=== PATIENT | male | born 1955 | race Caucasian/White ===

== ENCOUNTER 2017-02-02 09:16 | Outpatient (CLI) ==
--- NOTE | 2017-02-03 09:53 | MRI ---
EXAM: Lumbar spine MRI without contrast. HISTORY: Pain. COMPARISON: None. TECHNIQUE: Multiplanar, multisequence MR images were acquired of the lumbar spine without contrast. FINDINGS: Five lumbar-type vertebra are present. There is minor mid lumbar dextroscoliosis and mil d loss of the usual smooth lumbar lordosis. There is 1.5 mm retrolisthesis of L4 on L5 and 2 mm ret rolisthesis of L5 on S1. The superior endplate of S1 is smaller than the inferior endplate of L5. T he lumbar vertebra are generally normal in height and intrinsic bone marrow signal. Benign intraoss eous hemangioma is present at T12. Ventral and lateral osteophytes are present in the lumbar spine and there is mild irregular concavity of the endplates from T10-11 to L5-S1.. Small chronic Schmorl 's nodes are present at T12, L1, L5 and S1. There is disc space narrowing and disc desiccation with vacuum phenomenon at L1-2. At L3-4, there is osteophytosis with moderate disc space narrowing and mild irregularity of the endplates which is greatest left laterally where there is bright STIR signa l along the left posterolateral endplates, central left intervertebral disc and in the left L3-4 jesus ral foramen. At L4-5, there is moderate disc space narrowing with mild degenerative endplate rea es which are greatest right laterally with bright STIR signal along the right lateral endplates and intervertebral disc without cortical destruction along the endplates. At L5-S1, there is moderate to marked disc space narrowing with mild degenerative endplate changes and reactive marrow changes tom ng the lateral endplates bilaterally. Faint bright STIR signal is present i along the mid right post erolateral endplates and disc without cortical destruction. Conus medullaris ends at L1-2 and has n ormal signal intensity. 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 The partially visualized liver, spleen and kidneys are unremarkable. There is dilatation of the dis vj common bile duct which tapers to the duodenum. There are no paravertebral masses. T12-L1: There is a mild diffuse disc osteophyte complex with a small right paracentral disc protrus ion that mildly indents the right ventrolateral thoracic cord that effaces the right lateral recess where may adversely contact the right L1 nerve roots. Minor bilateral facet arthropathy is present. There is no central canal stenosis. L1-2: There is a mild disc bulge that is asymmetric to the right and mild bilateral hypertrophic fa cet arthropathy and ligamentum flavum hypertrophy. This causes mild right foraminal stenosis. L2-3: There is a mild bilobed disc bulge with a left lateral annular fissure and a small right post erolateral/lateral disc protrusion and annular fissure that narrows the right lateral recess and inf erior right neural foramen. Minor bilateral facet arthropathy and mild bilateral ligamentum flavum hypertrophy is present. In this patient with a developmentally narrow canal and prominent dorsal ep idural fat, these findings cause mild bilateral neural foraminal stenosis and mild spinal stenosis. AP diameter of the thecal sac is 9 mm. L3-4: There is a diffuse disc bulge with marginal osteophytes that is asymmetric to the left which effaces the ventral thecal sac and narrows the inferior neural foramina bilaterally. There is a mod erate broad-based central disc extrusion that extends from the right paracentral margin of the disc to the left posterolateral margin of the disc. This has migrated 7 mm below the disc level. Modera te left and mild to moderate right hypertrophic facet arthropathy is present with mild bright STIR s ignal edema in the left posterolateral and lateral L3 and L4 vertebra endplates, intervertebral disc and L4 pedicle. This extends into the left neural foramen and into the left lateral paravertebral soft tissues and medial left psoas muscle at L3 and L4. No localized fluid collections are present. These findings may represent degenerative changes or early diskitis and osteomyelitis. No cortic al destruction is identified. L4-5: There is a diffuse disc bulge that is asymmetric to the right and small central disc extrusio n with 3 mm inferior migration. Mild right hypertrophic facet arthropathy and minor left facet arth ropathy is present. There is mild right neural foraminal stenosis. L5-S1: There is a diffuse disc osteophyte complex with a small central disc protrusion that minimal ly effaces the ventral thecal sac. Mild bilateral hypertrophic facet arthropathy and ligamentum fla vum hypertrophy is present. This produces bilateral lateral recess stenosis where there may be encr oachment on both S1 nerves and there is moderate bilateral foraminal stenosis with encroachment on b oth L5 nerves. IMPRESSION: 1. Extensive lumbar degenerative spondylosis which in this patient with a developmentally narrow ca nal causes mild L2-3 and mild to moderate L3-4 spinal stenosis. 2. Unexpected result. Moderate discogenic disease L3-4 with bright STIR signal along the left late ral endplates and central and left intervertebral disc. This extends into the medial left psoas mus keaton at L3 and L4. Clinical considerations include early diskitis and endplate osteomyelitis with ad jacent psoas inflammation or accelerated degenerative endplate changes with bright STIR signal edema due to increased stress or motion at this level. Correlation with laboratory findings and further evaluation is advised. 3. Mild discogenic disease L4-5 with mild degenerative endplate changes right laterally and bright STIR signal in the right intervertebral disc and along the lateral endplates. This may represent ed sebastian due to degenerative endplate changes or early inflammation. Correlation with laboratory values may be helpful. 4. Small right paracentral disc protrusion T12-L1 that may encroach on the right L1 nerve roots. 5. Small disc herniations L2-3, L4-5 and L5-S1 and moderate disc herniation L3-4.
== END 2017-02-02 09:17 | disposition home or self-care (01) ==
LOC: RAD 09:16 → EDBD 09:16 → RAD 09:17
PROVIDERS: ATTEND Nurse Practitioner
DX: M54.5 Low back pain (principal)

== ENCOUNTER 2017-03-21 10:38 | Emergency (ER) ==
[2017-03-21 10:44] VITALS: BP 158/90; TEMP 98.4; BMI 37.5
[2017-03-21 11:17] LABS: BILIRUBIN,URINE Negative (NEGATIVE); KETONES,URINE Negative (NEGATIVE); LEUKOCYTE ESTERASE ,URINE Negative (NEGATIVE); NITRITE,URINE Negative (NEGATIVE); PH,URINE 5.5 (5-9); PROTEIN,URINE Negative (NEGATIVE); URINE, BLOOD Negative (NEGATIVE)
[2017-03-21 11:20] LABS: ADD URINE MICROSCOPIC NO
[2017-03-21 11:33] LABS: BASOPHILS # (AUTO) 0.1 K/uL (0-0.2); BASOPHILS % (AUTO) 0.9 % (0.0-3.0); EOSINOPHILS % (AUTO) 0.4 % (0.0-7.0); HEMATOCRIT 44.6 % (42.0-52.0); HEMOGLOBIN 15.9 g/dl (14.0-18.0); IMMATURE GRANULOCYTE % (AUTO) 0.4 % (0.0-5.0); LYMPHOCYTES # (AUTO) 1.1 K/uL (0.60-3.4); LYMPHOCYTES % (AUTO) 20.6 (10.0-50.0); MEAN CORPUSCULAR HGB CONC 35.7 (31.8-35.4); MEAN CORPUSCULAR VOLUME 86.9 fl (80.0-94.0); MONOCYTES # (AUTO) 0.7 K/uL (0.4-2.0); MONOCYTES % (AUTO) 12.8 (0-10); NEUTROPHILS # (AUTO) 3.5 K/ul (2.0-6.9); NEUTROPHILS % (AUTO) 64.9; PLATELET COUNT 176 10^3/uL (140-440); RED BLOOD COUNT 5.13 10^6/ul (4.70-6.10); WHITE BLOOD COUNT 5.45 K/ul (4.2-10.2)
[2017-03-21 11:53] LABS: ALBUMIN 4.3 g/dL (3.4-5.0); ALBUMIN/GLOBULIN RATIO 1.19; ANION GAP 14.6; BILIRUBIN,TOTAL 1.15 mg/dL (0.00-1.20); BUN/CREATININE RATIO 12.5; CALCIUM 9.8 mg/dL (8.2-10.2); CREATININE 1.04 mg/dL (0.60-1.10); POTASSIUM 4.6 mmol/L (3.5-5.1); TOTAL PROTEIN 7.9 g/dL (5.8-8.1)
--- NOTE | 2017-03-21 11:55 | DI ---
EXAM: Two views of the chest. History: Cough. Findings: Heart size is normal. No focal consolidation. No appreciable pleural fluid and no pneum othorax. No acute osseous abnormalities. Impression: No acute cardiopulmonary process.
--- NOTE | 2017-03-21 12:01 | CT ---
EXAM: CT of the lumbar spine without contrast History: Osteomyelitis of the lumbar spine. Comparison: MRI lumbar spine 02/02/2017 Technique: Multiplanar CT images through the lumbar spine were obtained without the administration of IV contrast Findings: No acute fracture or subluxation of the lumbar spine. No CT evidence for osteomyelitis/diskitis. N o change in the multilevel degenerative disc space narrowing which is most significant and moderate to severe at L5, S1. Multilevel central canal stenosis is not significantly changed compared to the prior MRI. The multilevel bilateral bony neural foraminal narrowing which is severe bilaterally at L5-S1 is also not significantly changed compared to the prior MRI. Impression: 1. No CT evidence for osteomyelitis or diskitis. 2. No acute fracture or subluxation. 3. Stable degeneration of the lumbar spine.
--- NOTE | 2017-03-21 12:37 | ED.PDOC ---
General ED Provider: Dr. ZARINA ANDRADE Chief Complaint: Fever Stated Complaint: fever Time Seen by Physician: 10:49 (stated he had fever at home none in ED ) Mode of Arrival: Walk-In Information Source: Patient Exam Limitations: No limitations Primary Care Provider: NATHAN ARMSTRONG Referred to ED by: Other (WITH NURSE AT BEDSIDE DID A POINT STRESS EXAM ON HIS ENTIRE SPINE NO PAIN NOTED LEONARDO AT BEDSIDE MRI REVIWED ) Nursing and Triage Documentation Reviewed and Agree: Yes (SEEN WITH SATFF AT ALL TIMES (LEONARDO. RN) NO BACK PAIN ON ARRIVAL) Miscellaneous Complaint Exam - Febrile Illness/Adult Complaint/Exam Onset/Duration: 1 DAY AGO T MAX 101 Symptoms Are: Resolved Current Severity: None Aggravating: Reports: None Alleviating: Reports: None Associated Signs and Symptoms: Reports: Vomiting Pseudomonas Risk Factors: Reports: None Serious Bacterial Infection Risk Factors: Reports: None Related Surgical History: None Review of Systems - Review Of Systems Constitutional: Reports: Fever Eyes: Reports: No symptoms Ears, Nose, Mouth, Throat: Reports: No symptoms Respiratory: Reports: No symptoms Cardiac: Reports: No symptoms GI: Reports: No symptoms : Reports: No symptoms Musculoskeletal: Reports: No symptoms Skin: Reports: No symptoms Neurological: Reports: No symptoms Endocrine: Reports: No symptoms Hematologic/Lymphatic: Reports: No symptoms All Other Systems: Reviewed and Negative Past Medical History - Past Medical History Previously Healthy: No Endocrine: Reports: DM 2, Dyslipidemia Cardiovascular: Reports: Hypertension Respiratory: Reports: None Hematological: Reports: None Gastrointestinal: Reports: None Genitourinary: Reports: None Neuro/Psych: Reports: None Musculoskeletal: Reports: None Cancer: Reports: None - Surgical History General Surgical History: Reports: None - Family History Family History: Reports: None - Social History Smoking Status: Former smoker Hx Substance Use: No Alcohol Screening: Occasionally Physical Exam - Physical Exam Appearance: Well-appearing, No pain distress, Well-nourished Eyes: ZACHARY, EOMI, Conjunctiva clear ENT: Ears normal, Nose normal, Oropharynx normal Respiratory: Airway patent, Breath sounds clear, Breath sounds equal, Respirations nonlabored Cardiovascular: RRR, Pulses normal, No rub, No murmur GI/: Soft, Nontender, No masses, Bowel sounds normal, No Organomegaly Musculoskeletal: Normal strength (ENTIRE BACK EXAM WITH NURSE ATBEDSIDE NEGATIVE FOR PAIN), ROM intact, No edema, No calf tenderness Skin: Warm, Dry, Normal color Neurological: Sensation intact, Motor intact, Reflexes intact, Cranial nerves intact, Alert, Oriented Psychiatric: Affect appropriate, Mood appropriate Interpretation - Radiology Interpretation Radiology Interpretation By: Radiologist Radiology Results: Negative Exam Interpreted: CXR Critical Care Note - Critical Care Note Total Time (mins): 0 Course - Course Hematology/Chemistry: 03/21/17 11:23 03/21/17 11:23 Orders, Labs, Meds: Lab Review 03/21/17 03/21/17 11:00 11:23 WBC 5.45 RBC 5.13 Hgb 15.9 Hct 44.6 MCV 86.9 MCH 31.0 MCHC 35.7 H RDW Coeff of [place] 12.2 Plt Count 176 Immature Gran % (Auto) 0.4 Neut % (Auto) 64.9 Lymph % (Auto) 20.6 [place] % (Auto) 12.8 H Eos % (Auto) 0.4 Baso % (Auto) 0.9 Immature Gran # (Auto) 0.0 Neut # 3.5 Lymph # 1.1 [place]ancock # 0.7 Eos # 0.0 Baso # 0.1 Sodium 134 L Potassium 4.6 Chloride 97 L Carbon Dioxide 27 Anion Gap 14.6 BUN 13 Creatinine 1.04 Estimated GFR (MDRD) 72.00 BUN/Creatinine Ratio 12.50 Glucose 242 H Lactic Acid 24.8 H Calcium 9.8 Total Bilirubin 1.15 AST 26 ALT 42 Alkaline Phosphatase 64 Total Protein 7.9 Albumin 4.3 Globulin 3.6 Albumin/Globulin Ratio 1.19 Procalcitonin 0.11 Urine Color Yellow Urine Clarity Clear Urine pH 5.5 Ur Specific [place] 1.010 Urine Protein Negative Urine Glucose (UA) 2+ Urine Ketones Negative Urine Blood Negative Urine Nitrite Negative Urine Bilirubin Negative Urine Urobilinogen 1.0 Ur Leukocyte Esterase Negative Orders Category Date Time Status BLOOD CULTURE Stat LAB 03/21/17 11:23 Received CBC W/ AUTO DIFF Stat LAB 03/21/17 11:23 Completed COMPREHENSIVE METABOLIC PANEL Stat LAB 03/21/17 11:23 Completed LACTIC ACID Stat LAB 03/21/17 11:23 Completed PROCALCITONIN Stat LAB 03/21/17 11:23 Completed URINALYSIS C & S IF INDICATED Stat LAB 03/21/17 11:00 Completed CHEST, 2 VIEWS PA & LAT Stat RADS 03/21/17 10:[address] LUMBAR SPINE W/O CONTRAST Stat RADS 03/21/17 10:56 Completed Vital Signs: Temp Pulse Resp BP Pulse Ox 03/21/17 10:40 98.4 F 75 14 158/90 H 94 L Departure - Departure Time of Disposition: 12:38 Disposition: HOME SELF-CARE Discharge Problem: Fever Instructions: Fever in Adults (ED) Condition: Good Pt referred to PMD for follow-up: Yes Additional Instructions: Please call your Family Physician as soon as possible to schedule a follow-up appointment.GET YOUR LAB RESULTS WE DISCUSSED Allergies/Adverse Reactions: Allergies No Known Allergies Allergy (Unverified 03/21/17 10:44) Home Medications: Ambulatory Orders Alprazolam 0.5 mg PO DAILY PRN 03/21/17 Aspirin [Aspirin EC] 81 mg PO DAILYWM 03/21/17 Atorvastatin Calcium 10 mg PO BEDTIME 03/21/17 Glipizide 10 mg PO DAILY 03/21/17 Lisinopril 10 mg PO BID 03/21/17 Metoprolol Tartrate [Lopressor] 50 mg PO BID 03/21/17
[2017-03-23 19:09] LABS: IGG P18 AB Absent (.); IGG P23 AB Absent (.); IGG P28 AB Absent (.); IGG P30 AB Absent (.); IGG P39 AB Absent (.); IGG P41 AB Present (.); IGG P45 AB Absent (.); IGG P58 AB Absent (.); IGG P66 AB Absent (.); IGG P93 AB Absent (.); IGM P39 AB Absent (.); IGM P41 AB Absent (.)
[2017-03-24 08:08] LABS: LYME IGG WB INTERP Negative (.)
[2017-03-24 08:11] LABS: LYME IGM WB INTERP Negative (.)
== END 2017-03-21 13:12 | disposition home or self-care (01) ==
LOC: ED 10:38
DX: R50.9 Fever, unspecified (principal); R11.10 Vomiting, unspecified; E11.9 Type 2 diabetes mellitus without complications; E78.5 Hyperlipidemia, unspecified; I10 Essential (primary) hypertension
CPT/HCPCS: 36415; 80053; 81001; 83605; 84145; 85025; 86617; 87040; 87651; 87798; 87880; 99283; 99291

== ENCOUNTER 2017-03-24 09:06 | Outpatient (CLI) ==
--- NOTE | 2017-03-24 13:42 | MRI ---
EXAM: MRI lumbar spine without and with IV contrast. DATE: 24 March 2017. HISTORY: Lumbar osteoarthritis. Concern for osteomyelitis on January 2017 MRI. TECHNIQUE: Sagittal and axial T1W, T2W, and T1W postcontrast sequences of the lumbar spine along wi th sagittal IR and coronal T2W sequences were obtained using 1.2 Georgette magnet. CONTRAST: Omniscan - 20 ml IV. COMPARISON: MRI L-spine 02/02/2017. CT lumbar spine 21 March 2017. FINDINGS: There are five [id number] lumbar vertebra. No lumbar scoliosis is evident. Minimal subluxations at L1-2, L4-5, L5-S1 are unchanged. No acute lumbar fracture, osseous malignancy, or pars interarticularis defect is demonstrated. Endplate indentations are observed at each level from T11 through L5. Large osteophytes are noted throughout the thoracolumbar spine. Bone marrow signa l is overall normal. T2W/T1W bright, IR mildly bright, 9 mm focus in the T12 vertebral body is like ly a benign hemangioma. Minor L1-2, mild L3-4, mild L4-5, and marked L5-S1 disc space narrowing is detected. Spinous process arthritis is noted at several lumbar levels. No sacral fracture or stres s reaction is evident. Small anterior bridging osteophytes noted at the SI joints. Conus medullari s terminates at L1. Visible spinal cord is normal. No abnormal contrast enhancement is identified w ithin the spinal cord, nerve roots, vertebral bodies, or intervertebral discs. No retroperitoneal lymphadenopathy, paraspinal mass, or aortic aneurysm is detected. Paraspinal musc ulature is symmetric bilaterally. Visible portions of the liver, spleen, adrenal glands and kidneys are limited by breathing motion artifacts, but reveal no definitive malignancy. Segmental analysis: T11-12: Minimal posterior disc bulge and moderate facet arthropathy cause mild central canal stenos is, moderate right foraminal stenosis, and mild/moderate left foraminal stenosis. T12-L1: Small concentric disc bulge, superimposed right paracentral to foraminal disc protrusion (4 mm AP x 2.4 cm transverse), minor right facet arthropathy, and mild left facet arthropathy cause tr iangulation of the canal, mild right foraminal stenosis, and minor left foraminal narrowing. L1-2: Minimal anterior subluxation of L2, small concentric disc bulge, mild facet arthropathy and d orsal epidural fat cause mild central canal stenosis and mild right foraminal stenosis. L2-3: Small concentric disc bulge, mild facet arthropathy, mild ligamentum flavum hypertrophy and a bundant dorsal epidural fat cause mild central canal stenosis and mild bilateral foraminal stenoses. L3-4: Moderate concentric disc bulge (asymmetrically prominent in the left foramen to far lateral r egion vs superimposed disc protrusion), mild facet arthropathy, and mild ligamentum flavum hypertrop hy cause marked central canal stenosis and moderate bilateral foraminal stenoses. Each L3 nerve sherry t contacts the disc bulge in the foramen. There are tiny bilateral facet effusions. L4-5: Minor anterior subluxation of L5, moderate concentric disc bulge, and mild facet arthropathy cause mild central canal stenoses, moderate right foraminal stenosis, and mild left foraminal stenos is. Each L4 nerve root contacts the disc bulge near the lateral aspect of the foramen. L5-S1: Minor anterior subluxation of L5, moderate concentric disc bulge, and mild facet arthropathy cause triangulation of the canal and marked narrowing at the opening to each foramen. Each L5 nerv e root appears to contact disc bulge/facet disease at the foramen. IMPRESSIONS: 1. L-spine marked spondylosis, mild facet arthropathy, minor subluxations, and multilevel DDD. No c onvincing evidence of diskitis or osteomyelitis of the lumbar spine. 2. Multilevel foraminal stenoses. Bilateral L3, L4, and L5 nerve roots contact disc bulges near th e foramen, and may be sources for pain/radiculopathy. 3. Multilevel central canal stenoses (T11-12: Mild. T12-L1: Minor. L1-2: Mild. L2-3: Mild. L3-4 : Marked. L4-5: Mild. L5-S1: Minor). 4. T - L-spine small, chronic Schmorl's nodes. 5. Spinous process arthritis - Baastrup's syndrome. 6. Small, benign hemangioma in the T12 vertebra.
== END 2017-03-24 09:07 | disposition home or self-care (01) ==
LOC: RAD 09:06
PROVIDERS: ATTEND Nurse Practitioner
DX: M47.816 Spondylosis without myelopathy or radiculopathy, lumbar region (principal)

== ENCOUNTER 2017-03-28 09:04 | Outpatient (CLI) ==
[2017-03-28 09:27] LABS: HEMATOCRIT 41.1 % (42.0-52.0); HEMOGLOBIN 14.6 g/dl (14.0-18.0); MEAN CORPUSCULAR HEMOGLOBIN 31.2 pg (27.0-31.0); MEAN CORPUSCULAR HGB CONC 35.5 (31.8-35.4); MEAN CORPUSCULAR VOLUME 87.8 fl (80.0-94.0); PLATELET COUNT 275 10^3/uL (140-440); RED BLOOD COUNT 4.68 10^6/ul (4.70-6.10); WHITE BLOOD COUNT 9.66 K/ul (4.2-10.2)
[2017-03-28 10:01] LABS: ERYTHROCYTE SEDIMENTATION RATE 28 mm/hr (0-15); ESR INTERNAL QC INTERNAL QC VALID
== END 2017-03-28 09:05 | disposition home or self-care (01) ==
LOC: LAB 09:04
PROVIDERS: ATTEND Nurse Practitioner
DX: M54.5 Low back pain (principal); G89.29 Other chronic pain; M46.46 Discitis, unspecified, lumbar region
CPT/HCPCS: 36415; 85027; 85651; 86140